=== PATIENT | female | born 1980 | race Caucasian/White ===

== ENCOUNTER 2019-04-26 16:58 | Emergency (ER) | payer OTHER ==
[~2019-04-26] VITALS: Ht 167.6 cm; Wt 64.9 kg
[2019-04-26] MEDS ORDERED: PROMETH-CODEIN 65 ML PO (19:08)
== END 2019-04-26 20:39 | disposition home or self-care (01) ==
LOC: ER 16:58
DX: J11.1 Influenza due to unidentified influenza virus with other respiratory manifestations (principal)